=== PATIENT | male | born 1980 | race Caucasian/White ===

== ENCOUNTER 2020-02-22 20:39 | Inpatient (IN) | payer MEDICAID, SELFPAY ==
[~2020-02-22] VITALS: Ht 177.8 cm; Wt 87.5 kg
[2020-02-22 20:45] VITALS: BP 114/77
--- NOTE | 2020-02-22 20:54 | NUR ---
PT TAKEN TO BED 5
--- NOTE | 2020-02-22 21:11 | NUR ---
Dr. Rodriguez examining patient.
--- NOTE | 2020-02-22 21:12 | NUR ---
40 Y/O MALE PRESENTS WITH EPIGASTRIC SHARP NON RADIATING PAIN 10/10 THAT BEGUN 2 WEEKS AGO AND HAS NOT GOTTEN BETTER DESPITE TAKING OMEPRAZOLE/ACETAMINOPHEN. ABD IS SOFT/ TENDER UPON PALPATION, BOWEL SOUNDS ARE NORMOACTIVE IN ALL QUADRANTS. RESP EVEN AND UNLABORED. LUNG SOUNDS ARE CLEAR IN ALL QUADRANTS. AAOX4. PATIENT REPORTS NAUSEA/VOMITING/DIARRHEA FOR THE PAST TWO WEEKS INTERMITTENTLY. REPORTS SUBJECTIVE FEVERS ON/OFF. PT IS AFEBRILE AT THIS TIME. NO PMH NKA
[2020-02-22] MEDS ORDERED: NACL 0.9% 2,600 ML IV ONE (21:15)
[2020-02-22] MEDS ORDERED: KETOROLAC 30 MG/ML VIAL IVP ONE (21:15)
[2020-02-22 21:47] LABS: BASOPHILS # (AUTO) 0.1 K/uL (0.00-0.22); BASOPHILS % (AUTO) 0.9 % (0.0-2.0); HEMATOCRIT 42.8 % (36-52); HEMOGLOBIN 14.7 g/dL (12.0-18.0); LYMPHOCYTES # (AUTO) 0.7 K/uL (2.0-11.5); LYMPHOCYTES % (AUTO) 8.4 % (20.5-51.1); MEAN CORPUSCULAR HEMOGLOBIN 30 pg (27-31); MEAN CORPUSCULAR HGB CONC 34 g/dL (33-37); MEAN CORPUSCULAR VOLUME 87.6 fL (80-94); MONOCYTES # (AUTO) 0.7 K/uL (0.8-1.0); MONOCYTES % (AUTO) 8.5 % (1.7-9.3); NEUTROPHILS % (AUTO) 82.2 % (42.2-75.2); PLATELET COUNT (AUTO) 236 K/uL (140-450); RED BLOOD CELL COUNT(AUTO) 4.89 MIL/uL (4.20-6.10); WHITE BLOOD COUNT (AUTO) 8.5 K/uL (4.8-10.8)
[2020-02-22 21:49] LABS: APPEARANCE,URINE CLEAR (CLEAR); BILIRUBIN,URINE NEGATIVE (NEGATIVE); BLOOD, URINE NEGATIVE (NEGATIVE); COLOR,URINE YELLOW (YELLOW); LEUKOCYTE ESTERASE ,URINE NEGATIVE (NEGATIVE); NITRITE, URINE NEGATIVE (NEGATIVE); UGLUCOSE NEGATIVE (NEGATIVE)
--- NOTE | 2020-02-22 22:01 | NUR ---
PT TAKEN TO CT
--- NOTE | 2020-02-22 22:01 | NUR ---
Nayely calle in [facility] - 02/23/20 at 0015 by JAYANT PT TAKEN TO BED 5
[2020-02-22 22:09] LABS: ALBUMIN 3.3 g/dL (3.4-5.0); ANION GAP 13.8 (8-16); CARBON DIOXIDE 28.7 mmol/L (21-32); CREATININE 1.2 mg/dL (0.6-1.3); POTASSIUM 3.5 mmol/L (3.5-5.1); TOTAL BILIRUBIN 0.6 mg/dL (0.0-1.0)
[2020-02-22] MEDS ORDERED: MORPHINE SULFATE 4 MG/ML SYR IVP ONE (22:50)
[2020-02-22] MEDS ORDERED: LEVOFLOXACIN 750 MG/D5W PREMIX 150 ML IV ONE (23:10)
[2020-02-22] MEDS ORDERED: cefTRIAXone 2,000 MG in DEXTROSE 5% 100 ML IV ONE (23:10)
[2020-02-22] MEDS ORDERED: cefTRIAXone 2,000 MG VIAL ONE (23:13)
[2020-02-23] MEDS ORDERED: MORPHINE SULFATE 2 MG/ML SYR IVP PRN (00:05)
[2020-02-23] MEDS ORDERED: ONDANSETRON 4 MG/2 ML VIAL IM/IVP PRN (00:05)
[2020-02-23] MEDS: DEXT 5% / NACL 0.45% 1,000 ML IV SCH ×2 (00:05→12:35)
[2020-02-23] MEDS ORDERED: LORazepam 2 MG/ML VIAL IM/IVP PRN (00:05)
[2020-02-23] MEDS ORDERED: ACETAMINOPHEN 325 MG TAB PO PRN (00:05)
[2020-02-23] MEDS ORDERED: DOCUSATE SODIUM 100 MG GELCAP PO PRN (00:05)
[2020-02-23 00:14] VITALS: BP 114/77
--- NOTE | 2020-02-23 00:16 | NUR ---
X-Ray at bedside.
--- NOTE | 2020-02-23 00:40 | NUR ---
RECEIVED FROM ER PER JESSICA AWAKE AND ALERT. ABLE TO VERBALIZE NEEDS WELL IN NEPALI. DX. OF PNA . PT. ROM X 4. A/O X 3. CLEAR SPEECH. AFEBRILE . TEMPERATURE PER TEMPORAL 97.8. ORIENTED TO CALL LIGHT USE AND TO CALL FOR ANY HELP HE MAY NEED OR IF IN PAIN. IVF SITE TO RAC #20 INFUSING WITH ROCEPHIN AT THIS TIME. NO NOTED ADVERSE REACTIONS TO ABT ON GOING. NO RASHES NO SOB. SKIN INTACT.
--- NOTE | 2020-02-23 00:47 | NUR ---
Patient will be admitted to care of [facility]. Admited to TELE. Will go to room 112B. Belongings list completed. Report to BASIL ALMANZA.
[2020-02-23 00:54] LABS: PROTHROMBIN TIME 10.1 secs (10.8-13.4)
[2020-02-23 01:04] LABS: PHOSPHORUS 2.7 mg/dL (2.5-4.9); THYROID STIMULATING HORMONE 3.58 uIU/mL (0.34-3.74)
[2020-02-23 01:08] LABS: BARBITURATE, URINE NEGATIVE ng/ml (NEG <=200); BENZODIAZEPINE, URINE NEGATIVE ng/mL (NEG <=200); CANNABINOID, URINE NEGATIVE ng/mL (NEG <=50); COCAINE, URINE NEGATIVE ng/mL (NEG <=300); OPIATE, URINE NEGATIVE ng/mL (NEG <=2000); PHENCYCLIDINE SCREEN,URINE NEGATIVE ng/mL (NEG <=25)
[2020-02-23] MEDS: PANTOPRAZOLE 40 MG INJ VIAL IVP SCH ×2 (01:14→10:07)
[2020-02-23] MEDS ORDERED: ALUMINUM HYD/MAG/SIMETHICONE 30 ML UDC PO SCH (02:00)
[2020-02-23] MEDS ORDERED: DICYCLOMINE 10 MG CAP PO SCH (02:00)
[2020-02-23] MEDS ORDERED: LIDOCAINE VISCOUS 2% 20 ML UDC PO SCH (02:00)
[2020-02-23] MEDS ORDERED: ACET-2619 PO (02:17)
[2020-02-23] MEDS ORDERED: OMEP20TC10 PO (02:17)
--- NOTE | 2020-02-23 02:39 | NUR ---
PT. SLEEPING AT THIS TIME WITH CALL LIGHT AT BEDSIDE AND EASY ACCESS. TELEMETRY MONITORING. NO RESTLESSNESS.
[2020-02-23] MEDS ORDERED: AZITHROMYCIN 500 MG in DEXTROSE 5% 250 ML IV SCH ×2 (02:40→22:00)
[2020-02-23 04:00] VITALS: BP 116/74
[2020-02-23] MEDS ORDERED: AZITHROMYCIN 500 MG INJ VIAL IV ONE (04:53)
--- NOTE | 2020-02-23 05:18 | NUR ---
NO BM/DIARRHEA THIS SHIFT. SLEPT WELL SINCE ADMISSION. A/O X 3. ROM X 4. AWAKE AT THIS TIME RT CAR RESTORER IN HERE TO GET BLOOD SPECIMEN. NO COMPLAINTS OF ANY PAIN DONE. IVF SITE INTACT AND NO INFILTRATION. NO SOB. AFEBRILE.
[2020-02-23 05:24] LABS: BASOPHILS % (AUTO) 0.5 % (0.0-2.0); HEMATOCRIT 42.5 % (36-52); HEMOGLOBIN 14.2 g/dL (12.0-18.0); LYMPHOCYTES # (AUTO) 0.8 K/uL (2.0-11.5); LYMPHOCYTES % (AUTO) 8.7 % (20.5-51.1); MEAN CORPUSCULAR HEMOGLOBIN 30 pg (27-31); MEAN CORPUSCULAR HGB CONC 33 g/dL (33-37); MEAN CORPUSCULAR VOLUME 88.4 fL (80-94); MONOCYTES # (AUTO) 0.8 K/uL (0.8-1.0); MONOCYTES % (AUTO) 8.6 % (1.7-9.3); NEUTROPHILS # (AUTO) 7.9 K/uL (1.8-7.7); NEUTROPHILS % (AUTO) 82.2 % (42.2-75.2); PLATELET COUNT (AUTO) 198 K/uL (140-450); RED CELL DISTRIBUTION WIDTH 13.3 % (11.6-13.7); WHITE BLOOD COUNT (AUTO) 9.6 K/uL (4.8-10.8)
[2020-02-23 05:38] LABS: ANION GAP 12.7 (8-16); CARBON DIOXIDE 29.4 mmol/L (21-32); POTASSIUM 4.1 mmol/L (3.5-5.1)
[2020-02-23 05:45] LABS: CHOL/HDL RATIO 6.1 (1-4.5)
--- NOTE | 2020-02-23 06:04 | NUR ---
PATIENT HAS BEEN SCREENED AND CATEGORIZED MODERATE NUTRITION RISK. PATIENT WILL BE SEEN WITHIN 3-5 DAYS OF ADMISSION. 02/25/20-02/27/20 ALISHA POWELL MS, RDN
[2020-02-23] MEDS ORDERED: AZITHROMYCIN 250 MG TAB PO ONE (06:30)
--- NOTE | 2020-02-23 07:01 | NUR ---
AWAKE AND ALERT. NO COMPLAINTS DONE. WILL ENDORSE TO AM RN FOR CONTINUITY OF CARE.
--- NOTE | 2020-02-23 07:29 | NUR ---
RECEIVED REPORT FROM CLEAN ROOM OPERATOR NURSE, FOR CONTINUITY OF CARE. PT IS AA&OX4. RESPIRATIONS ARE EVEN, AND UNLABORED, BREATHING TO RA. LAC IV IS PATENT AND INTACT. SKIN INTACT. NPO EXCEPT MEDS. SAFETY MEASURES IN PLACE, CALL LIGHT WITHIN REACH, BED IN LOW POSITION. TELE MONITOR ATTACHED. WILL CONTINUE TO MONITOR.
[2020-02-23 08:00] VITALS: BP 121/73
[2020-02-23] MEDS: LACTOBACILLUS RHAMNOSUS GG 1 EACH CAP PO SCH (10:06)
--- NOTE | 2020-02-23 10:11 | NUR ---
ADMINISTERED PT'S SCHEDULED AM MEDICATIONS. PT TOLERATED PO MED WELL. MEDICATION EDUCATION GIVEN, PT VERBALIZED UNDERSTANDING. PT IS RESTING IN BED, NO ACUTE DISTRESS NOTED. SAFETY MEASURES IN PLACE. WILL CONTINUE TO MONITOR.
[2020-02-23] MEDS ORDERED: BISACODYL 5 MG TABEC PO SCH (10:56)
[2020-02-23 12:00] VITALS: BP 120/78
--- NOTE | 2020-02-23 12:36 | NUR ---
PT'S SCHEDULED DULCOLAX WAS GIVEN MEDICATION EDUCATION WAS PROVIDED TO PT, PT VERBALIZED UNDERSTANDING. STOOL SAMPLE WAS COLLECTED. NO DISTRESS NOTED. TELE MONITOR ATTACHED. SAFETY MEASURES IN PLACE; BED IN LOW POSITION, CALL LIGHT WITHIN REACH. WILL CONTINUE TO MONITOR.
--- NOTE | 2020-02-23 12:54 | NUR ---
PT'S STOOL SAMPLE WAS DROPPED OFF TO THE LAB. PT IS NOW TALKING ON THE PHONE TO HIS STEP DAUGHTER, NO DISTRESS NOTED. TELE MONITOR ATTACHED. SAFETY MEASURES IN PLACE; BED IN LOW POSITION, CALL LIGHT WITHIN REACH. WILL CONTINUE TO MONITOR.
[2020-02-23] MEDS: HYDROcodone/APAP 5/325 MG 1 TAB TAB PO PRN ×2 (13:16→21:57)
--- NOTE | 2020-02-23 13:16 | NUR ---
PT COMPLAINED OF 6/10 HEADACHE PAIN. PRN NORCO WAS ADMINISTERED. WILL REASSESS. TELE MONITOR ATTACHED. SAFETY MEASURES IN PLACE; BED IN LOW POSITION, CALL LIGHT WITHIN REACH. WILL CONTINUE TO MONITOR.
--- NOTE | 2020-02-23 15:12 | NUR ---
PT IS RESTING IN BED, AWAKE. NO DISTRESS NOTED. TELE MONITOR ATTACHED. SAFETY MEASURES IN PLACE. WILL CONTINUE TO MONITOR.
[2020-02-23 16:00] VITALS: BP 124/74
--- NOTE | 2020-02-23 17:54 | NUR ---
PT IS RESTING IN BED, STATES THAT HE FEELS BETTER AFTER EATING DINNER; CLEAR LIQUID DIET. 100% COMPLETED. NO DISTRESS NOTED. TELE MONITOR ATTACHED WILL CONTINUE TO MONITOR.
--- NOTE | 2020-02-23 18:16 | NUR ---
PT'S IV FLUIDS WERE HUNG, AND IS RUNNING PER ORDERS. PT IS AWAKE AND RESTING IN BED, NO DISTRESS NOTED. SAFETY MEASURES IN PLACE.
--- NOTE | 2020-02-23 19:29 | NUR ---
GAVE BEDSIDE REPORT TO NIGHTSHIFT NURSE FOR CONTINUITY OF CARE. PT IS IN STABLE CONDITION.
--- NOTE | 2020-02-23 19:30 | NUR ---
RECEIVED BEDSIDE SHIFT REPORT FROM DAYSHIFT NURSE FOR CONTINUITY OF CARE. PT AWAKE IN BED. NO SIGNS OF DISTRESS NOTED. CALL LIGHT WITHIN REACH MONITOR ATTACHED.
[2020-02-23 20:00] VITALS: BP 121/79
--- NOTE | 2020-02-23 21:57 | NUR ---
PT COMPLAINED OF A 6/10 HEADACHE DESCRIBED THROBBING IS IS UNABLE TO SLEEP THROUGH IT. I ADMINISTERED PRN PAIN MEDICATION TO PATIENT PER MD ORDER. PT TOLERATED WELL. NO SIGNS OF DISTRESS NOTED. WILL REEVALUATE
--- NOTE | 2020-02-23 22:00 | NUR ---
CONTACTED MD TO OBTAIN AN ORDER FOR O2 VIA NC DUE TO PATIENT SPO2 READING BEING BETWEEN 91-92% ON ROOM AIR. PT WAS ASYMPTOMATIC. DENIES SHORTNESS OF BREATH OR DIFFICULTY BREATHING. WILL CONTINUE TO MONITOR
[2020-02-23] MEDS ORDERED: ALBUTEROL HFA MDI 90 MCG/ACTUATION 8 GM INH PRN (22:30)
--- NOTE | 2020-02-23 22:50 | NUR ---
RECEIVED A CALL FROM KATELYNN WITH [facility] TO RECEIVE CLARIFICATION ON A DUPLICATE ORDER PLACED FOR THE PATIENT. ZITHROMAX. PHARMACY STATES THE PHYSICIAN ORDERED ZITHROMAX 500MG IV Q24H BUT THE PATIENT IS ALREADY RECEIVING ZITHROMAX 500 MG PO Q24H. PHARMACY WANTED TO KNOW WHICH ORDER TO KEEP. CONTACTED RESIDENT DOCTOR AND HE CONFIRMED THE IV ORDER SHOULD BE KEPT HE WILL DC THE PO ORDER. CALLED PHARMACY TO CLARIFY ORDER.
--- NOTE | 2020-02-23 22:57 | NUR ---
PAIN REASSESSED. PT STATES HIS PAIN LEVEL IS DECREASING HE CAN NOW REST. PT STATES CURRENT PAIN LEVEL IS 2/10 BUT IS TOLERABLE TO THE PATIENT.
--- NOTE | 2020-02-23 23:26 | NUR ---
ZITHROMAX ORDER ACTIVE WITH ADMINISTRATION TIME 2200. PER EMAR PT RECEIVED MED ON 02/23/20 AT 0240. ADMINISTRATION AT 2200 WOULD BE WITHIN 24HRS. CALLED PHARMACY TO ASK IF MEDICATION CAN BE ADMINISTERED NOW WITHIN 24HRS OR IF THE SCHEDULED TIME OF THE MEDICATION CAN BE MOVED TO 0240. PER PHARMACY THEY WILL RESCHEDULE THE TIME OF THE MEDICATION ADMIN TO 0240.
[2020-02-24] VITALS: BP 110/71
[2020-02-24] MEDS: DEXT 5% / NACL 0.45% 1,000 ML IV SCH ×2 (01:05→18:19)
[2020-02-24] MEDS ORDERED: LEVOFLOXACIN 750 MG/D5W PREMIX 150 ML IV SCH (01:30)
[2020-02-24] MEDS ORDERED: AZITHROMYCIN 500 MG INJ VIAL IV ONE (03:03)
[2020-02-24] MEDS: AZITHROMYCIN 500 MG in DEXTROSE 5% 250 ML IV SCH (03:20)
--- NOTE | 2020-02-24 03:20 | NUR ---
ADMINISTERED ZITHROMAX PER MD ORDER. PT TOLERATED WELL. NO SIGNS OF DISTRESS NOTED. RESPIRATIONS EVEN AND UNLABORED ON RA. WILL CONTINUE TO MONITOR
[2020-02-24 04:00] VITALS: BP 109/78
--- NOTE | 2020-02-24 04:33 | NUR ---
OBTAINED 0400 VITALS. PT RESTING. NO SIGNS OF DISTRESS NOTED. SPO2 IMPROVED ON 2L 02 VIA NC. SPO2 AT 97%. SAFETY MEASURES IN PLACE. TELE MONITOR ATTACHED CALL LIGHT WITHIN REACH
[2020-02-24 06:44] LABS: ANION GAP 11.6 (8-16); CARBON DIOXIDE 29.6 mmol/L (21-32); CREATININE 1.1 mg/dL (0.6-1.3); POTASSIUM 3.2 mmol/L (3.5-5.1)
[2020-02-24 06:50] LABS: MAGNESIUM 2.2 mg/dL (1.8-2.4); PHOSPHORUS 2.9 mg/dL (2.5-4.9)
[2020-02-24 06:54] LABS: BASOPHILS % (AUTO) 0.2 % (0.0-2.0); EOSINOPHILS % (AUTO) 0.6 % (0.0-4.0); HEMOGLOBIN 13.6 g/dL (12.0-18.0); LYMPHOCYTES # (AUTO) 0.7 K/uL (2.0-11.5); MEAN CORPUSCULAR HEMOGLOBIN 29 pg (27-31); MEAN CORPUSCULAR HGB CONC 33 g/dL (33-37); MEAN CORPUSCULAR VOLUME 88.2 fL (80-94); MONOCYTES # (AUTO) 0.7 K/uL (0.8-1.0); MONOCYTES % (AUTO) 11.1 % (1.7-9.3); NEUTROPHILS # (AUTO) 4.6 K/uL (1.8-7.7); NEUTROPHILS % (AUTO) 76.1 % (42.2-75.2); PLATELET COUNT (AUTO) 218 K/uL (140-450); RED BLOOD CELL COUNT(AUTO) 4.65 MIL/uL (4.20-6.10); RED CELL DISTRIBUTION WIDTH 13.2 % (11.6-13.7); WHITE BLOOD COUNT (AUTO) 6.1 K/uL (4.8-10.8)
--- NOTE | 2020-02-24 07:25 | NUR ---
RECEIVED REPORT FROM SLAT BASKET MAKER MACHINE NURSE. PATIENT LYING DOWN IN BED, NO DISTRESS NOTED. DENIES ANY PAIN. PER NIGHT RN, PATIENT HAD DIARRHEA X3 LAST NIGHT. AAOX4, CALM, COOPERATIVE, SKIN COLOR APPROPRIATE TO ETHNICITY, WARM TO TOUCH. SKIN INTACT. ABLE TO AMBULATE WITH STEADY GAIT. IV SITE INTACT, PATENT, AND INFUSING IVF PER MD ORDERS. SAFETY MEASURES IN PLACE, CALL LIGHT WITHIN REACH. WILL CONTINUE TO MONITOR.
--- NOTE | 2020-02-24 07:30 | NUR ---
ENDORSED PT TO DAYSHIFT NURSE AT BEDSIDE FOR CONTINUITY OF CARE. PT AWAKE IN BED NO SIGNS OF DISTRESS NOTED.
[2020-02-24 08:00] VITALS: BP 111/71
[2020-02-24] MEDS ORDERED: AZITHROMYCIN 250 MG TAB PO SCH (09:00)
[2020-02-24] MEDS: LACTOBACILLUS RHAMNOSUS GG 1 EACH CAP PO SCH (09:18)
[2020-02-24] MEDS: PANTOPRAZOLE 40 MG INJ VIAL IVP SCH (09:18)
--- NOTE | 2020-02-24 09:42 | NUR ---
PATIENT SITTING DOWN IN BED, NO DISTRESS NOTED. SCHEDULED MEDICATIONS DUE GIVEN. WILL CONTINUE TO MONITOR.
[2020-02-24] MEDS ORDERED: POTASSIUM CHLORIDE 10 MEQ TABER PO SCH (10:30)
[2020-02-24 12:00] VITALS: BP 114/79
--- NOTE | 2020-02-24 12:07 | NUR ---
PATIENT LYING DOWN IN BED COMFORTABLY, NO DISTRSS NOTED, NO COUGHING, NO FEVER. SCHEDULED MEDICATIONS DUE GIVEN. WILL CONTINUE TO MONITOR.
--- NOTE | 2020-02-24 12:33 | NUR ---
Shovel Engineer Note: Basic Screen: Yes High Risk DC Screen [place]: CORTEZ LAWSON Home Relationship: Pre-Admission Living Arrangements: Lives with Other Prior ADL Independent Current Home Health Name/Tel: N/A Current DME/02 Name/Tel: N/A Current Hospice Name/Tel: N/A Current Dialysis Name/Tel: N/A Healthcare Decision Maker: Patient Advance Directive No Physician Orders for Life Sustaining Treatment Form No Patient/Family Have Educational Needs No Discipline: Case Mgt/Social Svcs Tentative Discharge Plan/Destination: No Needs Identified Will require assistance post discharge: No Referred to Customs Officer: No Tentative Discharge Plan Summary: Patient is a 40-year-old male admitted for pneumonia and fatty liver. Patient has no pertinent PMHX. Patient was admitted from home where angelica blake his and son. SW contacted Cortez Lawson [phone], patient's , to verify demographics. Per Cortez, patient has no history of mental health, no substance abuse history, and is able to complete all ADLs independently. Tentative discharge plan is for patient to return home. No further needs identified. Signature: JOSE Haas Date: Feb 24, 2020 Time: 12:32
--- NOTE | 2020-02-24 14:30 | NUR ---
PATIENT LYING DOWN IN BED WATCHING TV. NO DISTRESS NOTED. CONDITION UNCHANGED. WILL CONTINUE TO MONITOR.
--- NOTE | 2020-02-24 15:02 | NUR ---
DC PLANNIN YRS OLD MALE PATIENT WAS ADMITTED FROM HOME WITH A DX OF PNE, FATTY LAURA. PT HAS NO MEDICAL HX . CT ABD/PELVIS SHOWED NO ACUTE ABDOMINAL OR PELVIC ABNORMALITY . STARTED IV PROTONIX , IV ZOFRAN AND ROCEPHIN IV CXR MULTIFOCAL BILATERAL PATCHY INFILTRATE AIRSPACE DISEASE. BLOOD AND URINE CULTURE PENDING C-DIFF PENDING WELL. SEEN BY MARCO GARCIA RECOMMENDED CHECKING FOR COVID-19 AND RESULT PENDING. DC PLAN TO GO HOME WHEN STABLE CM TO FOLLOW. Addendum: 02/25/20 at 1141 by Britany Escalante CM DC PLANNING: SEEN BY MARCO WILHELM , AWAITING RESULTS FOR COVID 19 TESTING MONITOR O2 SAT REMAINS ROOM AIR CONTINUE THE EMPIRIC ABX ROCEPHIN AND ZITHROMAX ALBUTEROL MDI. DC PLAN AWAITING FOR COVID RESULT. CM TO FOLLOW. Addendum: 02/26/20 at 1210 by Britany Escalante CM DC PLANNING: COVID 19 TEST (+) ,STARTED ON HYDROXYCHLOROQUINE PO AND AZITHROMYCIN IV SEEN BY DR BARB ORELLANA TO CONTINUE EMPIRIC THERAPY. DC PLAN WHEN STABLE CM TO FOLLOW. Addendum: 02/27/20 at 1518 by Britany Escalante CM DC PLANNING: CONTINUE DAY 2 OF HYDROXYCHLOROQUINE AND DAY #4 OF IV AZITHROMYCIN . PULMO CLEAR PATIENT AND DR BARB ORELLANA RECOMMENDS TO KEEP PT ONE MORE DAY . PT O2 SAT 96% ON ROOM AIR WITH RESP RATE 18 NO FEVER OR HYPOXIC. DC PLAN TO GO HOME WHEN STABLE. CM TO FOLLOW.
[2020-02-24 16:00] VITALS: BP 113/69
--- NOTE | 2020-02-24 19:22 | NUR ---
GAVE REPORT TO MECHANICAL SERVICE TECHNICIAN NURSE FOR CONTINUITY OF CARE. PATIENT IN STABLE CONDITION.
[2020-02-24 20:00] VITALS: BP 110/60
--- NOTE | 2020-02-24 22:00 | NUR ---
MADE ROUNDS . NO S/S OF ACUTE DISTRESS NOTED AT THIS TIME . WILL CONT. TO MONITOR.
--- NOTE | 2020-02-24 22:58 | NUR ---
RECEIVED PT. AAOX4 , NID - 02 SAT WNL . DENIES PAIN AT THIS TIME. IV SITE INTACT AND PATENT . SAFETY MEASURE IN PLACE - CALL LIGHT WITHIN REACH . POC DISCUSSED AND VERBALIZE UNDERSTANDING . ON TELE MONITOR. WILL CONT. TO MONITOR. AMBULATORY. Addendum: 02/24/20 at 2304 by Gilma Bey RN THE ABOVE NURSE'S NOTES ENTRY IS WRONG TIMED INSTEAD OF Rita - LYNN
[2020-02-25] VITALS: BP 116/65
[2020-02-25] MEDS: AZITHROMYCIN 500 MG in DEXTROSE 5% 250 ML IV SCH (03:00)
[2020-02-25] MEDS ORDERED: AZITHROMYCIN 500 MG INJ VIAL IV ONE (03:09)
[2020-02-25 04:00] VITALS: BP 116/60
[2020-02-25 07:20] LABS: BASOPHILS % (AUTO) 0.7 % (0.0-2.0); EOSINOPHILS # (AUTO) 0.2 K/uL (0-0.4); EOSINOPHILS % (AUTO) 2.6 % (0.0-4.0); HEMATOCRIT 40.6 % (36-52); HEMOGLOBIN 13.5 g/dL (12.0-18.0); LYMPHOCYTES % (AUTO) 17.4 % (20.5-51.1); MEAN CORPUSCULAR HEMOGLOBIN 30 pg (27-31); MEAN CORPUSCULAR HGB CONC 33 g/dL (33-37); MEAN CORPUSCULAR VOLUME 88.5 fL (80-94); MONOCYTES # (AUTO) 0.8 K/uL (0.8-1.0); MONOCYTES % (AUTO) 13.1 % (1.7-9.3); NEUTROPHILS # (AUTO) 3.9 K/uL (1.8-7.7); NEUTROPHILS % (AUTO) 66.2 % (42.2-75.2); PLATELET COUNT (AUTO) 247 K/uL (140-450); RED BLOOD CELL COUNT(AUTO) 4.59 MIL/uL (4.20-6.10); RED CELL DISTRIBUTION WIDTH 13.3 % (11.6-13.7); WHITE BLOOD COUNT (AUTO) 5.8 K/uL (4.8-10.8)
[2020-02-25 07:22] LABS: ANION GAP 11.6 (8-16); CARBON DIOXIDE 29.8 mmol/L (21-32); POTASSIUM 5.4 mmol/L (3.5-5.1)
--- NOTE | 2020-02-25 07:25 | NUR ---
RECEIVED REPORT FROM NIGHT NURSE PT IS STABLE. SAFETY MEASURES IN PLACE. WILL CONTINUE TO MONITOR.
[2020-02-25 08:00] VITALS: BP 118/77
--- NOTE | 2020-02-25 09:00 | NUR ---
MEDICATIONS DUE GIVEN PT IS STABLE PT IS SITTING AND DENIES PAIN. SAFETY MEASURES IN PLACE WILL CONTINUE TO MONITOR.
[2020-02-25] MEDS: LACTOBACILLUS RHAMNOSUS GG 1 EACH CAP PO SCH (10:35)
[2020-02-25] MEDS: PANTOPRAZOLE 40 MG INJ VIAL IVP SCH (10:35)
[2020-02-25 12:00] VITALS: BP 115/81
--- NOTE | 2020-02-25 12:00 | NUR ---
PT IS STABLE CONDITION, NO DISTRESS NOTED, DENIES PAIN. WILL CONTINUE TO MONITOR.
--- NOTE | 2020-02-25 13:07 | NUR ---
02/25/20 RD INITIAL ASSESSMENT COMPLETED PLEASE REFER TO NUTRITION ASSESSMENT UNDER CARE ACTIVITY FOR ESTIMATED NUTRITIONAL NEEDS. 1. CONTINUE REGULAR DIET TOLERATED 2. RECOMMEND ENSURE BID 3. FOLLOW PATIENTS FOOD PREFERENCES 4. RD TO FOLLOW-UP 3-5 DAYS, MODERATE RISK NELSON TAMAYO, RD
[2020-02-25 16:00] VITALS: BP 109/73
[2020-02-25] MEDS ORDERED: SODIUM ZIRCONIUM CYCLOSILICATE 10 GM POWD.PACK PO SCH (17:00)
--- NOTE | 2020-02-25 17:00 | NUR ---
MEDICATIONS DUE GIVEN PT IS STABLE SAFETY MEASURES IN PLACE. WILL CONTINUE TO MONITOR.
[2020-02-25] MEDS: DEXT 5% / NACL 0.45% 1,000 ML IV SCH (18:06)
--- NOTE | 2020-02-25 19:12 | NUR ---
ENDORSED TO NIGHT NURSE FOR CONTINUITY OF CARE PLAN. PT IS STABLE.
--- NOTE | 2020-02-25 19:13 | NUR ---
RECEIVED REPORT FROM DAY SHIFT NURSE. PATIENT IN BED WITH HOB ELEVATED. PATIENT AWAKE, ALERT, ORIENTED. RESPIRATIONS EVEN AND UNLABORED. DENIES ANY PAIN OR DISCOMFORT AT THIS TIME. IVF PATENT AND INFUSING WELL. SAFETY MEASURES IN PLACE. PLAN OF CARE DISCUSSED. WILL CONTINUE TO MONITOR.
--- NOTE | 2020-02-25 19:20 | NUR ---
NO TX NEEDED AT THIS TIME.
[2020-02-25 20:00] VITALS: BP 113/80
--- NOTE | 2020-02-25 20:10 | NUR ---
ROUNDS DONE. PATIENT IN BED RESTING WITH HOB ELEVATED. VITAL SIGNS ARE STABLE AT THIS TIME. DENIES ANY PAIN OR DISTRESS. NO REQUESTS MADE. KEPT COMFORTABLE. WILL CONTINUE TO MONITOR.
--- NOTE | 2020-02-25 22:45 | NUR ---
CRITICAL LAB REPORT RECEIVED. PATIENT POSITIVE FOR COVID 19. MD INFORMED. NO ORDERS GIVEN. AIRBORNE, DROPLET, CONTACT PRECAUTIONS OBSERVED. WILL CONTINUE TO MONITOR.
[2020-02-26] VITALS: BP 115/78
--- NOTE | 2020-02-26 00:18 | NUR ---
ROUNDS MADE. PATIENT IN BED RESTING. DENIES ANY PAIN OR DISCOMFORT. VITAL SIGNS STABLE. IVF INFUSING WELL. WILL CONTINUE TO MONITOR.
--- NOTE | 2020-02-26 02:08 | NUR ---
PATIENT SLEEPING. RESPIRATIONS EVEN AND UNLABORED. NO S/SX OF DISTRESS NOTED. SAFETY MEASURES IN PLACE. WILL CONTINUE TO MONITOR.
[2020-02-26] MEDS: AZITHROMYCIN 500 MG in DEXTROSE 5% 250 ML IV SCH (03:21)
[2020-02-26 04:00] VITALS: BP 117/78
--- NOTE | 2020-02-26 04:08 | NUR ---
ROUNDS DONE. PATIENT SITTING IN BED RESTING. VITAL SIGNS ARE STABLE. RESPIRATIONS EVEN AND UNLABORED. DENIES PAIN AT THIS TIME. PATIENT VERBALIZED IV PULLED OUT WHILE USING RESTROOM. IV REMOVED. CANNULA INTACT. REINSERTED NEW PERIPHERAL ACCESS ON R HAND G22. IVF PATENT AND INFUSING WELL. SCHEDULED MEDS GIVEN. PATIENT KEPT COMFORTABLE. SAFETY MEASURES IN PLACE. WILL CONTINUE TO MONITOR.
[2020-02-26 07:17] LABS: BASOPHILS % (AUTO) 0.4 % (0.0-2.0); EOSINOPHILS # (AUTO) 0.3 K/uL (0-0.4); EOSINOPHILS % (AUTO) 5.6 % (0.0-4.0); HEMATOCRIT 39.7 % (36-52); HEMOGLOBIN 13.2 g/dL (12.0-18.0); LYMPHOCYTES # (AUTO) 1.2 K/uL (2.0-11.5); LYMPHOCYTES % (AUTO) 27.1 % (20.5-51.1); MEAN CORPUSCULAR HEMOGLOBIN 30 pg (27-31); MEAN CORPUSCULAR HGB CONC 33 g/dL (33-37); MEAN CORPUSCULAR VOLUME 88.5 fL (80-94); MONOCYTES # (AUTO) 0.5 K/uL (0.8-1.0); MONOCYTES % (AUTO) 10.8 % (1.7-9.3); NEUTROPHILS # (AUTO) 2.6 K/uL (1.8-7.7); NEUTROPHILS % (AUTO) 56.1 % (42.2-75.2); PLATELET COUNT (AUTO) 299 K/uL (140-450); RED BLOOD CELL COUNT(AUTO) 4.48 MIL/uL (4.20-6.10); RED CELL DISTRIBUTION WIDTH 13.4 % (11.6-13.7); WHITE BLOOD COUNT (AUTO) 4.6 K/uL (4.8-10.8)
--- NOTE | 2020-02-26 07:20 | NUR ---
ENDORSED TO DAY SHIFT NURSE. PATIENT IN STABLE CONDITION. PLAN OF CARE DISCUSSED.
--- NOTE | 2020-02-26 07:21 | NUR ---
RECEIVED REPORT FROM NIGHT NURSE FOR CONTINUITY OF CARE, PT IS AAOX4, PT STABLE, PT HAS LEFT HAND INFUSING D5 1/2 NS AT 30 ML/HR, IV DRY AND INTACT, PT SKIN INTACT, INTRODUCE SELF, UPDATED WHITEBOARD, SAFETY MEASURES IN PLACE, CALL LIGHT WITHIN REACH. WILL CONTINUE TO MONITOR.
[2020-02-26 07:23] LABS: ANION GAP 12.7 (8-16); CARBON DIOXIDE 27.1 mmol/L (21-32); CREATININE 0.9 mg/dL (0.6-1.3); POTASSIUM 3.8 mmol/L (3.5-5.1)
[2020-02-26 07:30] LABS: MAGNESIUM 2.2 mg/dL (1.8-2.4); PHOSPHORUS 3.7 mg/dL (2.5-4.9)
[2020-02-26 08:00] VITALS: BP 119/77
[2020-02-26] MEDS: PANTOPRAZOLE 40 MG INJ VIAL IVP SCH (09:45)
[2020-02-26] MEDS: LACTOBACILLUS RHAMNOSUS GG 1 EACH CAP PO SCH (09:45)
[2020-02-26] MEDS: ZINC SULF 220 MG CAP PO SCH (09:46)
[2020-02-26] MEDS: ASCORBIC ACID 500 MG TAB PO SCH (09:46)
[2020-02-26] MEDS: HYDROXYCHLOROQUINE 200 MG TAB PO SCH ×2 (09:46→21:09)
--- NOTE | 2020-02-26 09:46 | NUR ---
ADMINISTERED SCHEDULED MEDICATION, EDUCATION GIVEN, PT VERBALIZED UNDERSTANDING, PT STABLE, CALL LIGHT WITHIN REACH.
[2020-02-26 12:00] VITALS: BP 113/74
--- NOTE | 2020-02-26 12:00 | NUR ---
GAVE PT INCENTIVE SPIROMETRY AND EDUCATED THE PT ON ITS USE, PT RETURNED DEMONSTRATED, PT TOLD TO USE EVERY HOURS AND DO 10 BREATHES, EDUCATION PT ON TEACH HOME ISOLATION AND GAVE HANDOUT. EDUCTED PT ON 10 WAYS TO MANAGE RESPIRATORY SYMPTOMS AT HOME AND GAVE HANDOUT, PT VERBALIZED UNDERSTANDING AND ACCEPTED THE HANDOUT. PT STABLE, CALL LIGHT WITHIN REACH.
--- NOTE | 2020-02-26 15:00 | NUR ---
PT ASLEEP IN BED, PT IS STABLE, RESPIRATIONS ARE EVEN AND UNLABORED ON ROOM AIR, PT IS STABLE, CALL LIGHT WITHIN REACH. PT WEARING HIS FACEMASK.
[2020-02-26 16:00] VITALS: BP 119/76
[2020-02-26] MEDS: DEXT 5% / NACL 0.45% 1,000 ML IV SCH (16:51)
--- NOTE | 2020-02-26 19:20 | NUR ---
GAVE REPORT TO NIGHT NURSE FOR CONTINUITY OF CARE, PT IS STABLE.
--- NOTE | 2020-02-26 19:21 | NUR ---
RECEIVED BEDSIDE REPORT FROM DAY SHIFT NURSE. PATIENT BREATHING EVEN AND UNLABORED ON RA. IV SITE ON LG 22G, PATENT, INTACT, AND ASYMPTOMATIC. SKIN INTACT, WARM AND DRY TO TOUCH. DENIES ANY PAIN OR DISCOMFORT AT THIS TIME. SAFETY MEASURES IN PLACE. BED IN LOW POSITION, SIDE RAILS RAISED, CALL LIGHT WITHIN REACH. PLAN OF CARE DISCUSSED. WILL CONTINUE TO MONITOR.
[2020-02-26 20:00] VITALS: BP 111/78
--- NOTE | 2020-02-26 21:09 | NUR ---
GIVEN PLAQUENIL MD ORDERED. PT TOLERATED WELL.
--- NOTE | 2020-02-26 23:07 | NUR ---
PT SLEEPING IN BED COMFORTABLY. NO ACUTE DISTRESS NOTED.
[2020-02-27] VITALS: BP 104/70
--- NOTE | 2020-02-27 00:04 | NUR ---
VS CHECKED, WITHIN PT'S BASELINE. WILL CONTINUE TO MONITOR.
[2020-02-27] MEDS: AZITHROMYCIN 500 MG in DEXTROSE 5% 250 ML IV SCH (02:24)
--- NOTE | 2020-02-27 02:24 | NUR ---
GIVEN ZITHROMAX MD ORDERED. PT TOLERATED WELL.
[2020-02-27 04:00] VITALS: BP 102/71
--- NOTE | 2020-02-27 04:04 | NUR ---
VS CHECKED, WITHIN PT'S BASELINE. WILL CONTINUE TO MONITOR.
--- NOTE | 2020-02-27 06:46 | NUR ---
PT IN STABLE CONDITION. WILL ENDORSE PT TO DAY SHIFT NURSE.
--- NOTE | 2020-02-27 07:19 | NUR ---
RECEIVED REPORT FROM FIELD STAFF NURSE, AVIVA, FOR CONTINUITY OF CARE. PT IS IN STABLE CONDITION.
--- NOTE | 2020-02-27 07:22 | NUR ---
GAVE REPORT TO PLATING ENGINEER NURSE, JAIME, FOR CONTINUITY OF CARE. PT IS IN STABLE CONDITION. Addendum: 02/27/20 at 2103 by Teetee Perrin RN *WRONG TIME* 1921
[2020-02-27 07:24] LABS: ANION GAP 13.5 (8-16); CARBON DIOXIDE 27.6 mmol/L (21-32); POTASSIUM 4.1 mmol/L (3.5-5.1)
[2020-02-27 07:27] LABS: MAGNESIUM 2.2 mg/dL (1.8-2.4); PHOSPHORUS 3.9 mg/dL (2.5-4.9)
[2020-02-27 07:29] LABS: BASOPHILS % (AUTO) 0.7 % (0.0-2.0); EOSINOPHILS # (AUTO) 0.3 K/uL (0-0.4); EOSINOPHILS % (AUTO) 4.1 % (0.0-4.0); HEMATOCRIT 42.8 % (36-52); HEMOGLOBIN 14.4 g/dL (12.0-18.0); LYMPHOCYTES # (AUTO) 1.8 K/uL (2.0-11.5); LYMPHOCYTES % (AUTO) 28.4 % (20.5-51.1); MEAN CORPUSCULAR HEMOGLOBIN 30 pg (27-31); MEAN CORPUSCULAR HGB CONC 34 g/dL (33-37); MEAN CORPUSCULAR VOLUME 88.8 fL (80-94); MONOCYTES # (AUTO) 0.7 K/uL (0.8-1.0); MONOCYTES % (AUTO) 11.1 % (1.7-9.3); NEUTROPHILS # (AUTO) 3.5 K/uL (1.8-7.7); NEUTROPHILS % (AUTO) 55.7 % (42.2-75.2); PLATELET COUNT (AUTO) 384 K/uL (140-450); RED BLOOD CELL COUNT(AUTO) 4.82 MIL/uL (4.20-6.10); RED CELL DISTRIBUTION WIDTH 13.5 % (11.6-13.7); WHITE BLOOD COUNT (AUTO) 6.2 K/uL (4.8-10.8)
--- NOTE | 2020-02-27 07:38 | NUR ---
PT IS LYING IN BED RESTING, [id number]. PATIENT BREATHING EVEN AND UNLABORED ON RA. IV SITE IS PATENT, INTACT, AND ASYMPTOMATIC. SKIN INTACT, WARM AND DRY TO TOUCH. DENIES PAIN. PT STATED THAT HE IS FEELING "BETTER". SAFETY MEASURES IN PLACE. BED IN LOW POSITION, SIDE RAILS RAISED, CALL LIGHT WITHIN REACH. PLAN OF CARE DISCUSSED. TELE MONITOR ATTACHED. WILL CONTINUE TO MONITOR.
--- NOTE | 2020-02-27 07:53 | NUR ---
RECEIVED A CALL FROM REGINE IN THE LAB OF A LACTIC ACID VALUE OF 2.1. WILL NOTIFY DR BAHENA OF LAB VALUE.
[2020-02-27 08:00] VITALS: BP 114/73
[2020-02-27] MEDS: ASCORBIC ACID 500 MG TAB PO SCH (09:35)
[2020-02-27] MEDS: PANTOPRAZOLE 40 MG INJ VIAL IVP SCH (09:35)
[2020-02-27] MEDS: HYDROXYCHLOROQUINE 200 MG TAB PO SCH (09:36)
[2020-02-27] MEDS: ZINC SULF 220 MG CAP PO SCH (09:42)
[2020-02-27] MEDS: LACTOBACILLUS RHAMNOSUS GG 1 EACH CAP PO SCH (09:43)
--- NOTE | 2020-02-27 09:45 | NUR ---
PT'S SCHEDULED MEDS WERE GIVEN; PT TOLERATED PO MEDS WELL. MEDICATION EDUCATION PROVIDED, PT VERBALIZED UNDERSTANDING. SAFETY MEASURES IN PLACE. BED IN LOW POSITION, SIDE RAILS RAISED, CALL LIGHT WITHIN REACH. PLAN OF CARE DISCUSSED. TELE MONITOR ATTACHED. WILL CONTINUE TO MONITOR.
[2020-02-27 12:00] VITALS: BP 110/74
--- NOTE | 2020-02-27 12:15 | NUR ---
PT IS LYING IN BED, AWAKE AND RESTING. VITAL SIGNS ARE STABLE. MEDICATION EDUCATION GIVEN, REINFORCEMENT NEEDED. SAFETY MEASURES IN PLACE. TELE MONITOR ATTACHED. WILL CONTINUE TO MONITOR.
--- NOTE | 2020-02-27 15:12 | NUR ---
PT IS SITTING UP IN BED WATCHING TELEVISION. IV IS PATENT AND INTACT AND IS RUNNING, PER ORDERS. NO DISTRESS NOTED. SAFETY MEASURES IN PLACE. TELE MONITOR ATTACHED. WILL CONTINUE TO MONITOR.
[2020-02-27 16:00] VITALS: BP 108/72
--- NOTE | 2020-02-27 17:45 | NUR ---
PT IS SITTING UP IN CHAIR TALKING ON THE PHONE. VITAL SIGNS ARE STABLE. IV IN RT HAND IS RUNNING, ORDERED. NO DISTRESS NOTED. SAFETY MEASURES IN PLACE. TELE MONITOR ATTACHED. WILL CONTINUE TO MONITOR.
[2020-02-27] MEDS: DEXT 5% / NACL 0.45% 1,000 ML IV SCH (18:06)
--- NOTE | 2020-02-27 19:20 | NUR ---
RECEIVED REPORT FORM ZOEY ALMANZA DAYSHIFT NURSE AT BEDSIDE FOR CONTINUITY OF CARE, PT IN STABLE CONDITION.
--- NOTE | 2020-02-27 19:22 | NUR ---
GAVE REPORT TO GAS PLANT TECHNICIAN NURSE, JAIME, FOR CONTINUITY OF CARE. PT IS IN STABLE CONDITION.
[2020-02-27 20:00] VITALS: BP 109/70
--- NOTE | 2020-02-27 20:15 | NUR ---
PT IN BED AOX4 NO S/S OF PAIN OR DISTRESS NOTED. RESPIRATIONS EVEN AND UNLABORED, HOWEVER, BREATH SOUNDS ARE DIMINISHED. PT HAS NO C/O OF COUGH AND IS NOT NOTED WITH A COUGH AT THIS TIME. NO MEDS DUE AT THIS TIME AND PT IS COMFORTABLE , HE ATE 100% OF HIS MEAL TRAY WHICH WAS AT BEDSIDE. V/S FOLLOWS; T 98.1 P 87 R 20 B/P 109/70 02 92% ON ROOM AIR. ALL CONTACT AND DROPLET PRECAUTIONS IN PLACE.
[2020-02-28] VITALS: BP 110/63
--- NOTE | 2020-02-28 | NUR ---
PT IN BED SLEEPING NO S/S OF PAIN OR DISTRESS NOTED. IV SITE ON RIGHT HAND ASYMPTOMATIC AND RUNNING D5 1/2 NS AT 30MLS/HR. V/S FOLLOWS: T 98.1 P 86 R 18 B/P 110/63 02 95% ON ROM AIR. ALL DROPLET PRECAUTIONS IN PLACE.
--- NOTE | 2020-02-28 00:30 | NUR ---
PT WAS TURNED, CHANGED AND REPOSITIONED IN BED V/S FOLLOWS; T 98.1 P 86 R 20 B/P 110/63 02 95% WITH 4 LITERS VIA N/C. ALL DROPLET AND FALLS PRECAUTIONS IN PLACE. NO S/S OF PAIN OR DISTRESS NOTED. Addendum: 02/28/20 at 0301 by Yuliana Reilly RN WRONG PT
[2020-02-28 04:00] VITALS: BP 98/68
--- NOTE | 2020-02-28 04:00 | NUR ---
PT IN BED SLEEPING NO S/S OF PAIN OR DISTRESS NOTED. IV SITE INTACT IV ABT ZITHROMAX HUNG AND IS RUNNING AT THIS TIME EDUCATION REGARDING MEDICATION INCLUDING SIDE EFFECTS PROVIDED AT BEDSIDE. PT VERBALIZED UNDERSTANDING V/S T 98.1 P 83 R 18 B/P 98/68 02 92% ON ROOM AIR. ALL DROPLET PRECAUTIONS IN PLACE, PT HAS NO S/S OF PAIN OR DISTRESS NOTED.
[2020-02-28] MEDS: AZITHROMYCIN 500 MG in DEXTROSE 5% 250 ML IV SCH (04:01)
--- NOTE | 2020-02-28 07:15 | NUR ---
RECEIVED REPORT FROM NIGHT NURSE. PATIENT IN STABLE CONDITION. ALERT, AWAKE, ORIENTED X4. NO DISTRESS NOTED. PLANS OF CARE DISCUSSED. IV INTACT AND PATENT TO RIGHT HAND. SAFETY MEASURES IN PLACE.
[2020-02-28 07:30] LABS: BASOPHILS % (AUTO) 0.9 % (0.0-2.0); EOSINOPHILS # (AUTO) 0.2 K/uL (0-0.4); HEMATOCRIT 39.8 % (36-52); HEMOGLOBIN 13.1 g/dL (12.0-18.0); LYMPHOCYTES # (AUTO) 1.8 K/uL (2.0-11.5); LYMPHOCYTES % (AUTO) 31.1 % (20.5-51.1); MEAN CORPUSCULAR HEMOGLOBIN 29 pg (27-31); MEAN CORPUSCULAR HGB CONC 33 g/dL (33-37); MEAN CORPUSCULAR VOLUME 88.7 fL (80-94); MONOCYTES # (AUTO) 0.8 K/uL (0.8-1.0); MONOCYTES % (AUTO) 13.7 % (1.7-9.3); NEUTROPHILS # (AUTO) 2.9 K/uL (1.8-7.7); NEUTROPHILS % (AUTO) 51.3 % (42.2-75.2); PLATELET COUNT (AUTO) 358 K/uL (140-450); RED BLOOD CELL COUNT(AUTO) 4.48 MIL/uL (4.20-6.10); RED CELL DISTRIBUTION WIDTH 13.2 % (11.6-13.7); WHITE BLOOD COUNT (AUTO) 5.7 K/uL (4.8-10.8)
[2020-02-28 07:46] LABS: ANION GAP 10.8 (8-16); CARBON DIOXIDE 30.3 mmol/L (21-32); POTASSIUM 4.1 mmol/L (3.5-5.1)
[2020-02-28 08:00] VITALS: BP 106/69
[2020-02-28 09:08] LABS: MAGNESIUM 2.3 mg/dL (1.8-2.4); PHOSPHORUS 3.8 mg/dL (2.5-4.9)
--- NOTE | 2020-02-28 10:00 | NUR ---
PATIENT REMAINS IN STABLE CONDITION. AAOX4. PATIENT WILL BE DISCHARGE TODAY ORDERED. NO DISTRESS NOTED.
[2020-02-28] MEDS: PANTOPRAZOLE 40 MG INJ VIAL IVP SCH (10:12)
[2020-02-28] MEDS: ZINC SULF 220 MG CAP PO SCH (10:12)
[2020-02-28] MEDS: LACTOBACILLUS RHAMNOSUS GG 1 EACH CAP PO SCH (10:12)
[2020-02-28] MEDS: ASCORBIC ACID 500 MG TAB PO SCH (10:13)
[2020-02-28] MEDS: HYDROXYCHLOROQUINE 200 MG TAB PO SCH (10:13)
[2020-02-28] MEDS ORDERED: ASCO1CAP75 PO ×2 (10:15→16:40)
[2020-02-28] MEDS ORDERED: HYDR200T5 PO ×2 (10:15→16:40)
[2020-02-28 12:00] VITALS: BP 112/71
--- NOTE | 2020-02-28 12:33 | NUR ---
VS STABLE. PATIENT AAOX4. NO DISTRESS NOTED. CALL LIGHT WITHIN REACH. PATIENT EATING LUNCH.
--- NOTE | 2020-02-28 15:25 | NUR ---
PATIENT DISCHARGED TO HOME. PICKED UP BY A FAMILY MEMBER VIA PRIVATE VEHICLE. ALL DISCHARGE INSTRUCTIONS/PAPERWORK GIVEN AND ALL BELONGINGS GIVEN. IV REMOVED, ID BANDS REMOVED. PATIENT IN STABLE CONDITION. MASK GIVEN, COVID INSTRUCTIONS GIVEN.
== END 2020-02-28 15:25 | disposition home or self-care (01) | DRG 137 ==
LOC: MED 20:39 → MTU 23:57 → EEVIPCON 23:57 → MTU 02-24 12:12
PROVIDERS: ADMIT General Practice; ATTEND General Practice
DX: U07.1 COVID-19 (principal); J12.89 Other viral pneumonia; K76.0 Fatty (change of) liver, not elsewhere classified; E88.89 Other specified metabolic disorders; E44.1 Mild protein-calorie malnutrition; Z68.27 Body mass index [BMI] 27.0-27.9, adult; Z87.891 Personal history of nicotine dependence; Z56.0 Unemployment, unspecified; J98.11 Atelectasis; E87.6 Hypokalemia; D72.810 Lymphocytopenia
CPT/HCPCS: 36415; 71045; 71260; 74018; 76705; 80048; 80053; 80305; 81003; 83036; 83605; 83690; 83735; 83880; 84100; 84443; 85025; 85610; 85651; 85730; 86140; 87040; 87045; 87070; 87081; 93005; 94664; 96361; 96365; 96375; 99285; C9113; J0456; J0696; J1644; J1885; J1956; J2270; J7060; Q0092; Q9967